=== PATIENT | female | born 1985 | race Hispanic/Latino ===

== ENCOUNTER 2023-07-08 14:20 | Emergency (ER) | payer SELFPAY ==
[2023-07-08] MEDS ORDERED: Lidocaine 4% Cream 5 GM TUBE w/ Tegaderm ONE (15:48)
[2023-07-08] MEDS ORDERED: Sulfameth/Trimethoprim DS 800-160mg TAB ONE (17:38)
[2023-07-08] MEDS ORDERED: Cephalexin 500 MG CAP ONE (17:38)
[2023-07-08] MEDS ORDERED: Boostrix 0.5 ML (Tdap) VIAL (>/=7 yrs of age) ONE (17:39)
== END 2023-07-08 18:15 | disposition home or self-care (01) ==
LOC: MADERS 14:20
DX: L03.011 Cellulitis of right finger (principal); I10 Essential (primary) hypertension; Z23 Encounter for immunization
CPT/HCPCS: 26010; 87070; 87077; 87205; 90471; 90715